=== PATIENT | female | born 1995 | race American Indian/Alaskan Native ===

== ENCOUNTER 2018-11-27 13:48 | Emergency (ER) | payer SELFPAY ==
[2018-11-27 13:54] VITALS: BP 156/113
--- NOTE | 2018-11-27 13:55 | Event Note ---
ED Screening Note Date of service: 11/27/18 Time: 13:54 ED Screening Note: 23 y/o female comes in for right ankle and leg pain s/p fall. This initial assessment/diagnostic orders/clinical plan/treatment(s) is/are subject to change based on patients health status, clinical progression and re-assessment by fellow clinical providers in the ED. Further treatment and workup at subsequent clinical providers discretion. Patient/guardian urged not to elope from the ED as their condition may be serious if not clinically assessed and managed. Initial orders include:
--- NOTE | 2018-11-27 14:38 | XRay Report ---
Right foreleg 4 views INDICATION: Right foreleg pain following injury IMPRESSION: The right foreleg is intact. No soft tissue abnormality. Signer Name: Oswaldo Rodriguez MD Signed: 11/27/2018 2:34 PM Workstation Name: [id number]
--- NOTE | 2018-11-27 15:27 | Emergency Department Report ---
ED Lower Extremity HPI - General Chief Complaint: Extremity Injury, Lower Stated Complaint: RT LEG INJURY Time Seen by Provider: 11/27/18 15:22 Source: patient Mode of arrival: Wheelchair Limitations: No Limitations - History of Present Illness Initial Comments: Pt reports a ground-level fall last night in which she injured her right lower leg. She reports pain with movement/walking with improved somewhat with rest. No numbness or weakness. MD Complaint: leg injury -: Sudden, Last night Injury: Leg: Right Type of Injury: other (fall) Severity: moderate Severity scale (0 -10): 6 Improves With: immobilization Worsens With: weight bearing Context: fall Associated Symptoms: able to partially bear weight - Related Data Previous Rx's Medication Instructions Recorded Last Taken Type Naproxen [Naprosyn] 500 mg PO BID #20 tablet 11/27/18 Unknown Rx Allergies Allergy/AdvReac Type Severity Reaction Status Date / Time No Known Allergies Allergy Unverified 11/27/18 13:52 ED Review of Systems ROS: Stated complaint: RT LEG INJURY Other details as noted in HPI Comment: All other systems reviewed and negative Musculoskeletal: as per HPI ED Past Medical Hx - Past Medical History Previous Medical History?: No - Surgical History Past Surgical History?: No - Medications Home Medications: Home Medications Medication Instructions Recorded Confirmed Last Taken Type Naproxen [Naprosyn] 500 mg PO BID #20 tablet 11/27/18 Unknown Rx ED Physical Exam - General Limitations: No Limitations General appearance: alert, in no apparent distress - Head Head exam: Present: atraumatic, normocephalic - Eye Eye exam: Present: normal appearance - ENT ENT exam: Present: mucous membranes moist - Neck Neck exam: Present: normal inspection - Respiratory Respiratory exam: Absent: respiratory distress - GI/Abdominal GI/Abdominal exam: Present: soft, normal bowel sounds - Extremities Exam Extremities exam: Present: normal inspection, other (Noted tenderness to R gtz, no swelling/deformity. Normal ankle/foot exam, normal distal pulses. Normal exam above the knee. ) - Back Exam Back exam: Present: normal inspection - Neurological Exam Neurological exam: Present: alert, oriented X3 - Psychiatric Psychiatric exam: Present: normal affect, normal mood - Skin Skin exam: Present: warm, dry, intact, normal color. Absent: rash ED Course Vital Signs 11/27/18 13:54 Temperature 98.0 F Pulse Rate 87 Respiratory 16 Rate Blood Pressure 156/113 [Right] O2 Sat by Pulse 98 Oximetry ED Lower Extremity MDM - Radiology Data Radiology results: report reviewed neg - Medical Decision Making leg injury following fall with overall benign exam and negative imaging recommend ortho f/u - Differential Diagnosis contusion, strain, fx Critical care attestation.: If time is entered above; I have spent that time in minutes in the direct care of this critically ill patient, excluding procedure time. ED Disposition Clinical Impression: Elevated blood pressure reading Leg pain Qualifiers: Laterality: right Qualified Code(s): M79.604 - Pain in right leg Disposition: DC-01 TO HOME OR SELFCARE Is pt being admited?: No Condition: Good Instructions: Arthralgia (ED) Prescriptions: Naproxen [Naprosyn] 500 mg PO BID #20 tablet Referrals: JAYLAN ESCALANTE MD [Staff Physician] - 3-5 Days Time of Disposition: 15:27
[2018-11-27] MEDS ORDERED: IBUPROFEN PO ONE (15:28)
== END 2018-11-27 15:56 | disposition home or self-care (01) ==
LOC: ED 13:48
DX: M79.604 Pain in right leg (principal); R03.0 Elevated blood-pressure reading, without diagnosis of hypertension; W18.30XA Fall on same level, unspecified, initial encounter; Y93.89 Activity, other specified; Y92.89 Other specified places as the place of occurrence of the external cause; Y99.8 Other external cause status
CPT/HCPCS: 99283